=== PATIENT | female | born 1955 ===

== ENCOUNTER 2017-08-09 15:05 | Emergency (ER) | payer MEDICARE ==
[2017-08-09 15:23] VITALS: BMI 35.0
[2017-08-09 15:25] VITALS: O2SAT 99
[2017-08-09] MEDS ORDERED: Lidocaine 5% Patch TD STA (15:37)
[2017-08-09] MEDS ORDERED: Oxycodone/Acetaminophen 5/325 mg Tab PO STA (15:37)
--- NOTE | 2017-08-09 15:37 | C.PDOC ---
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 LOCALIZED WORSE W MOVEMENT. NO DIRECT TRAUMA. 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 PS ADVISED NEEDS TO AVOID NSAIDS DUE TO GASTRITIS Time Seen by Provider: 08/09/17 15:27 Chief Complaint (Nursing): Rib Injury History Per: Patient History/Exam Limitations: no limitations Onset/Duration Of Symptoms: Hrs Current Symptoms Are (Timing): Still Present Severity: Moderate Past Medical History Reviewed: Historical Data, Nursing Documentation, Vital Signs Vital Signs: Last Vital Signs Temp 97.9 F 08/09/17 16:20 Pulse 67 08/09/17 16:20 Resp 18 08/09/17 16:20 BP 142/88 08/09/17 16:20 Pulse Ox 99 08/09/17 21:13 - Medical History PMH: Denies: Asthma, CHF Surgical History: Endoscopy Family History: States: No Known Family Hx - Social History Hx Tobacco Use: No Hx Alcohol Use: No Hx Substance Use: No - Immunization History Hx Tetanus Toxoid Vaccination: No Hx Influenza Vaccination: No Hx Pneumococcal Vaccination: No Review Of Systems Except As Marked, All Systems Reviewed And Found Negative. Musculoskeletal: Positive for: Back Pain (lower back pain) Neurological: Negative for: Weakness, Numbness Physical Exam - Physical Exam Appears: Non-toxic, No Acute Distress Skin: Normal Color, Warm Head: Atraumatic, Normacephalic Eye(s): bilateral: Normal Inspection, PERRL Nose: Normal Oral Mucosa: Moist Neck: Supple Chest: Symmetrical Cardiovascular: Rhythm Regular Respiratory: Normal Breath Sounds, No Rales, No Rhonchi, No Wheezing Back: Decreased ROM, Other (spasm with local tenderness in lower mid back) Extremity: Normal ROM Neurological/Psych: Oriented x3, Normal Speech, Normal Cognition ED Course And Treatment O2 Sat by Pulse Oximetry: 99 (RA) Pulse Ox Interpretation: Normal Reevaluation Time: 16:06 Reassessment Condition: Improved (PT REFUSES PERCOCET AND ZOFRAN DUE TO PRIOR SIDE EFFECTS. DC TYL #3) Medical Decision Making Medical Decision Making: PS advised that she needs to avoid NSAIDS due to gastritis. Disposition Counseled Patient/Family Regarding: Diagnosis, Need For Followup, Rx Given - Disposition Referrals: YOUR,PMD [Other] Disposition: HOME/ ROUTINE Disposition Time: 16:07 Condition: IMPROVED Additional Instructions: APLICA PARCHE AL ANUSHA AFECTADA. MAX 3 PARCHES A LA VEZ. RETIRE EL PATCH 12 HORAS DESPUS DE LA APLICACIN INICIAL. ALTERNATIVAS 12 HORAS ACTIVADAS, 12 HORAS DESACTIVADAS. Prescriptions: Acetaminophen/Codeine [Tylenol/Codeine 300 MG/30 MG] 2 tab PO Q6H #20 tab Lidocaine 5% [Lidoderm] 1 ea TD PRN PRN #10 patch PRN Reason: Pain, Moderate (4-7) Ondansetron [Zofran Odt] 4 mg PO TID PRN #9 odt PRN Reason: Nausea/Vomiting Instructions: Thoracic Back Strain (ED) Forms: [employer] ([place]) Print Language: CROATIAN - Clinical Impression Clinical Impression: Back strain - Scribe Statement The provider has reviewed the documentation as recorded by the Jessicaibe Martir Lima Provider Attestation: All medical record entries made by the Scribe were at my direction and personally dictated by me. I have reviewed the chart and agree that the record accurately reflects my personal performance of the history, physical exam, medical decision making, and the department course for this patient. I have also personally directed, reviewed, and agree with the discharge instructions and disposition.
[2017-08-09] MEDS ORDERED: Lidocaine 5% Patch TD ONE (15:49)
[2017-08-09] MEDS ORDERED: Oxycodone/Acetaminophen 5/325 mg Tab ONE (15:49)
[2017-08-09 16:28] VITALS: BP 142/88; PULSE 67; RESP 18; TEMP 97.9
== END 2017-08-09 16:28 | disposition home or self-care (01) ==
LOC: C.ER 15:05
DX: S39.012A Strain of muscle, fascia and tendon of lower back, initial encounter (principal); X50.9XXA Other and unspecified overexertion or strenuous movements or postures, initial encounter